=== PATIENT | female | born 1985 | race Caucasian/White ===

== ENCOUNTER 2019-11-05 07:41 | Day surgery (SDC) | payer OTHER ==
[2019-11-05] MEDS ORDERED: Marcaine 0.5% SDV 10 ML IJ ONE (07:42)
[2019-11-05] MEDS ORDERED: Depo-Medrol 40 MG/ML IM ONE (07:42)
[2019-11-05] MEDS ORDERED: Ketamine HCl 50 MG/ML ONE (09:36)
[2019-11-05] MEDS ORDERED: DIPRIVAN 200 MG/20 ML IV ONE (09:36)
--- NOTE | 2019-11-05 11:12 | XRAY ---
Indication: Left SI joint injection. Intraoperative fluoroscopy was provided for 7 seconds. 2 digital spot images submitted for interpretation demonstrates posterior needle tip over the inferior left SI joint. Correlate with intraoperative findings/report.
--- NOTE | 2019-11-05 11:41 | XRAY ---
7 seconds fluoroscopy time in surgery for left SI joint injection.
[2019-11-05] MEDS ORDERED: Lactated Ringers 1,000 ML IV ONE (15:47)
== END 2019-11-05 09:56 | disposition home or self-care (01) ==
LOC: SDC-PAIN 07:41
PROVIDERS: ATTEND Psychiatry & Neurology Pain Medicine
DX: M46.1 Sacroiliitis, not elsewhere classified (principal); E11.9 Type 2 diabetes mellitus without complications; J44.9 Chronic obstructive pulmonary disease, unspecified; K21.9 Gastro-esophageal reflux disease without esophagitis; I25.10 Atherosclerotic heart disease of native coronary artery without angina pectoris; F41.8 Other specified anxiety disorders; F31.9 Bipolar disorder, unspecified; Z79.899 Other long term (current) drug therapy
CPT/HCPCS: 72020; 77002; 82962; G0260; 27096; J1030; J2704

== ENCOUNTER 2020-03-03 07:33 | Day surgery (SDC) | payer OTHER ==
[2020-03-03] MEDS ORDERED: Depo-Medrol 40 MG/ML IM ONE (07:34)
[2020-03-03] MEDS ORDERED: BUPIVACAINE 0.5% VIAL IJ ONE (07:34)
[2020-03-03] MEDS ORDERED: Transderm Scop 1.5MG Patch ONE (09:30)
[2020-03-03] MEDS ORDERED: DIPRIVAN 200 MG/20 ML IV ONE (09:32)
[2020-03-03] MEDS ORDERED: Ketamine HCl 50 MG/ML ONE (09:33)
--- NOTE | 2020-03-03 11:07 | XRAY ---
Indication: Right SI joint injection. Intraoperative fluoroscopy was provided for 8 seconds. 2 digital spot images submitted for interpretation demonstrates posterior needle tip projecting over the inferior right SI joint. Correlate with intraoperative findings/report.
--- NOTE | 2020-03-03 11:12 | XRAY ---
8 seconds fluoroscopy time in surgery for right SI joint injection.
[2020-03-03] MEDS ORDERED: Lactated Ringers 1,000 ML IV ONE (15:13)
== END 2020-03-03 09:55 | disposition home or self-care (01) ==
LOC: SDC-PAIN 07:33
PROVIDERS: ATTEND Psychiatry & Neurology Pain Medicine
DX: M46.1 Sacroiliitis, not elsewhere classified (principal); E11.9 Type 2 diabetes mellitus without complications; J44.9 Chronic obstructive pulmonary disease, unspecified; F41.9 Anxiety disorder, unspecified; Z79.899 Other long term (current) drug therapy
CPT/HCPCS: 27096; 72020; 77002; 82947; 82962; J1030; J2704; A9270-GY; G0260

== ENCOUNTER 2020-10-13 06:58 | Day surgery (SDC) | payer OTHER ==
[2020-10-13] MEDS ORDERED: Depo-Medrol 40 MG/ML IM ONE (06:59)
[2020-10-13] MEDS ORDERED: Sodium Chloride 0.9(Preservative Free) 10 ML IJ ONE (06:59)
[2020-10-13] MEDS ORDERED: DIPRIVAN 200 MG/20 ML IV ONE (08:37)
[2020-10-13] MEDS ORDERED: Dextrose 5%-Lr IV Solution 1000 ML 1,000 ML IV ONE ×2 (09:00→16:25)
--- NOTE | 2020-10-13 09:40 | XRAY ---
Indication: L3-L5 transforaminal JEANNETTE. Intraoperative fluoroscopy was provided for 45 seconds. 4 digital spot images submitted for interpretation demonstrate posterior needle tips projected over the expected right L4 and L5 nerve roots. A small amount of contrast has been injected for needle tip placement. Correlate with intraoperative report/findings. There is incidental note of bilateral posterior L4-S1 orthopedic fusion hardware with spacer devices. In addition, a metallic generator with paired epidural stimulator leads is seen.
--- NOTE | 2020-10-14 11:33 | XRAY ---
45 seconds fluoroscopy time in surgery for L3-L5 transforaminal JEANNETTE.
== END 2020-10-13 09:07 | disposition home or self-care (01) ==
LOC: SDC-PAIN 06:58
PROVIDERS: ATTEND Psychiatry & Neurology Pain Medicine
DX: M54.16 Radiculopathy, lumbar region (principal); F41.9 Anxiety disorder, unspecified; I25.10 Atherosclerotic heart disease of native coronary artery without angina pectoris; J44.9 Chronic obstructive pulmonary disease, unspecified; K21.9 Gastro-esophageal reflux disease without esophagitis; E11.9 Type 2 diabetes mellitus without complications; Z79.899 Other long term (current) drug therapy
CPT/HCPCS: 64483; 64484; 72100; 77003; 82947; J1030; J2704; Q9966

== ENCOUNTER 2020-12-01 06:30 | Day surgery (SDC) | payer OTHER ==
[2020-12-01] MEDS ORDERED: Xylocaine 1% Vial 30 ML PF IJ ONE (06:31)
[2020-12-01] MEDS ORDERED: LIDOCAINE HCL 2% 100 MG/5 ML IJ ONE (06:31)
[2020-12-01] MEDS ORDERED: DIPRIVAN 200 MG/20 ML IV ONE (08:48)
--- NOTE | 2020-12-01 10:18 | XRAY ---
Indication: Bilateral L3-L5 MBB. Intraoperative fluoroscopy provided for 23 seconds. Single digital spot image submitted for interpretation demonstrates posterior needle tips projecting over the expected left and right L3-L5 nerve roots. Correlate with intraoperative findings/report. Incidental incompletely visualized bilateral L4-S1 posterior fusion spinal hardware.
--- NOTE | 2020-12-01 12:43 | XRAY ---
23 seconds of fluoroscopy was used in surgery for a bilateral L3-L5 MBB.
[2020-12-01] MEDS ORDERED: Lactated Ringers 1,000 ML IV ONE (16:33)
== END 2020-12-01 09:21 | disposition home or self-care (01) ==
LOC: SDC-PAIN 06:30
PROVIDERS: ATTEND Psychiatry & Neurology Pain Medicine
DX: M79.18 Myalgia, other site (principal); E11.9 Type 2 diabetes mellitus without complications; Z79.899 Other long term (current) drug therapy
CPT/HCPCS: 72020; 77002; 82947; J2001; J2704

== ENCOUNTER 2021-01-05 06:55 | Day surgery (SDC) | payer OTHER ==
[2021-01-05] MEDS ORDERED: BUPIVACAINE 0.5% VIAL IJ ONE (06:56)
[2021-01-05] MEDS ORDERED: DIPRIVAN 200 MG/20 ML IV ONE (08:36)
[2021-01-05] MEDS ORDERED: Lactated Ringers 1,000 ML IV ONE (09:00)
--- NOTE | 2021-01-05 12:03 | XRAY ---
Indication: Bilateral L4-S1 MBB. Intraoperative fluoroscopy provided for 54 seconds. 4 digital spot images submitted for interpretation demonstrate posterior needle tips projecting over the expected left and right L4-S1 nerve roots. Correlate with intraoperative findings/report. Incidental incompletely visualized bilateral L4-S1 fusion spinal hardware and epidural leads/tubing.
--- NOTE | 2021-01-05 12:40 | XRAY ---
54 seconds fluoroscopy time in surgery for bilateral L4-S1 MBB.
== END 2021-01-05 09:05 | disposition home or self-care (01) ==
LOC: SDC-PAIN 06:55
PROVIDERS: ATTEND Psychiatry & Neurology Pain Medicine
DX: M47.816 Spondylosis without myelopathy or radiculopathy, lumbar region (principal); E11.9 Type 2 diabetes mellitus without complications; Z79.899 Other long term (current) drug therapy
CPT/HCPCS: 64493; 64494; 72020; 77002; 82947; J2704

== ENCOUNTER 2021-02-02 07:38 | Day surgery (SDC) | payer OTHER ==
[2021-02-02] MEDS ORDERED: Xylocaine 1% Vial 30 ML PF IJ ONE (07:39)
[2021-02-02] MEDS ORDERED: D50W 50ML Vial IV ONE (07:39)
[2021-02-02] MEDS ORDERED: BUPIVACAINE 0.5% VIAL IJ ONE (07:39)
[2021-02-02] MEDS ORDERED: Depo-Medrol 40 MG/ML IM ONE (07:39)
[2021-02-02] MEDS ORDERED: DIPRIVAN 200 MG/20 ML IV ONE (09:16)
--- NOTE | 2021-02-02 11:22 | XRAY ---
Indication: Right L4-S1 RFA. Intraoperative fluoroscopy provided for 36 seconds. 3 digital spot image submitted for interpretation demonstrates posterior needle tips projecting over the expected right L4 and L5 nerve roots. Correlate with intraoperative findings/report. Incidental bilateral posterior L4-S1 spinal fusion hardware/intervertebral spacers and incompletely visualized lower back epidural stimulator device/leads.
--- NOTE | 2021-02-02 11:23 | XRAY ---
36 seconds fluoroscopy time in surgery for right L4-S1 RFA.
[2021-02-02] MEDS ORDERED: Lactated Ringers 1,000 ML IV ONE (15:02)
== END 2021-02-02 09:49 | disposition home or self-care (01) ==
LOC: SDC-PAIN 07:38
PROVIDERS: ATTEND Psychiatry & Neurology Pain Medicine
DX: M47.816 Spondylosis without myelopathy or radiculopathy, lumbar region (principal); E11.9 Type 2 diabetes mellitus without complications; Z79.899 Other long term (current) drug therapy
CPT/HCPCS: 64635; 64636; 72100; 77002; 82947; J1030; J2001; J2704

== ENCOUNTER 2021-02-09 06:49 | Day surgery (SDC) | payer OTHER ==
[2021-02-09] MEDS ORDERED: BUPIVACAINE 0.5% VIAL IJ ONE (06:50)
[2021-02-09] MEDS ORDERED: Depo-Medrol 40 MG/ML IM ONE (06:50)
[2021-02-09] MEDS ORDERED: Xylocaine 1% Vial 30 ML PF IJ ONE (06:50)
[2021-02-09] MEDS ORDERED: DIPRIVAN 200 MG/20 ML IV ONE (07:58)
[2021-02-09] MEDS ORDERED: Phenergan 25 MG INJ ONE (08:29)
--- NOTE | 2021-02-09 10:22 | XRAY ---
Indication: Left L4-S1 RFA. Intraoperative fluoroscopy provided for 44 seconds. 3 digital spot image submitted for interpretation demonstrates posterior needle tips projecting over the expected left L4-S1 nerve roots. Correlate with intraoperative findings/report. Incidental bilateral L4-S1 spinal fusion hardware/intervertebral spacers and epidural stimulator device.
--- NOTE | 2021-02-09 12:20 | XRAY ---
44 seconds of fluoroscopy was used in surgery for a left L4-S1 RFA.
[2021-02-09] MEDS ORDERED: Lactated Ringers 1,000 ML IV ONE (16:24)
== END 2021-02-09 08:43 | disposition home or self-care (01) ==
LOC: SDC-PAIN 06:49
PROVIDERS: ATTEND Psychiatry & Neurology Pain Medicine
DX: M47.816 Spondylosis without myelopathy or radiculopathy, lumbar region (principal); E11.9 Type 2 diabetes mellitus without complications; Z79.899 Other long term (current) drug therapy
CPT/HCPCS: 64635; 64636; 72100; 77002; 82947; J1030; J2001; J2550; J2704

== ENCOUNTER 2021-05-11 07:04 | Day surgery (SDC) | payer OTHER ==
[2021-05-11] MEDS ORDERED: LIDOCAINE HCL 2% 100 MG/5 ML IJ ONE (07:05)
[2021-05-11] MEDS ORDERED: Lactated Ringers 1,000 ML IV ONE (08:41)
[2021-05-11] MEDS ORDERED: DIPRIVAN 200 MG/20 ML IV ONE (09:38)
--- NOTE | 2021-05-11 11:41 | XRAY ---
Indication: Right C2-C5 MBB. Intraoperative fluoroscopy provided for 19 seconds. 2 digital spot image submitted for interpretation demonstrates posterior needle tips projecting over the expected right C2-C5 nerve roots. Correlate with intraoperative findings/report.
--- NOTE | 2021-05-11 11:43 | XRAY ---
19 seconds of fluoroscopy was used in surgery for a right C2-C5 MBB.
== END 2021-05-11 10:02 | disposition home or self-care (01) ==
LOC: SDC-PAIN 07:04
PROVIDERS: ATTEND Psychiatry & Neurology Pain Medicine
DX: M47.812 Spondylosis without myelopathy or radiculopathy, cervical region (principal); E11.9 Type 2 diabetes mellitus without complications; Z79.899 Other long term (current) drug therapy
CPT/HCPCS: 64490; 64491; 64492; 72040; 77002; 82947; J2704

== ENCOUNTER 2021-06-08 06:53 | Day surgery (SDC) | payer OTHER ==
[2021-06-08] MEDS ORDERED: BUPIVACAINE 0.5% VIAL IJ ONE (06:54)
[2021-06-08] MEDS ORDERED: Decadron 4 MG INJ IV ONE (06:54)
[2021-06-08] MEDS ORDERED: DIPRIVAN 200 MG/20 ML IV ONE (08:47)
[2021-06-08] MEDS ORDERED: Lactated Ringers 1,000 ML IV ONE (09:18)
--- NOTE | 2021-06-08 10:48 | XRAY ---
Indication: Right C2-C5 MBB. Intraoperative fluoroscopy provided for 25 seconds. 3 digital spot image submitted for interpretation demonstrates posterior needle tips projecting over the expected right C2-C5 nerve roots. Correlate with intraoperative findings/report.
--- NOTE | 2021-06-08 11:11 | XRAY ---
25 seconds fluoroscopy time in surgery for right C2-C5 MBB.
== END 2021-06-08 09:20 | disposition home or self-care (01) ==
LOC: SDC-PAIN 06:53
PROVIDERS: ATTEND Psychiatry & Neurology Pain Medicine
DX: M47.812 Spondylosis without myelopathy or radiculopathy, cervical region (principal); E11.9 Type 2 diabetes mellitus without complications; Z79.899 Other long term (current) drug therapy
CPT/HCPCS: 64490; 64491; 64492; 72050; 77002; 82947; J1100; J2704

== ENCOUNTER 2021-07-13 06:36 | Day surgery (SDC) | payer OTHER ==
[2021-07-13] MEDS ORDERED: Decadron 4 MG INJ IV ONE (06:37)
[2021-07-13] MEDS ORDERED: BUPIVACAINE 0.5% VIAL IJ ONE (06:37)
[2021-07-13] MEDS ORDERED: Xylocaine 1% Vial 30 ML PF IJ ONE (06:37)
[2021-07-13] MEDS ORDERED: DIPRIVAN 200 MG/20 ML IV ONE ×2 (08:04→08:22)
[2021-07-13] MEDS ORDERED: Lactated Ringers 1,000 ML IV ONE (09:44)
--- NOTE | 2021-07-13 10:30 | XRAY ---
35 seconds of fluoroscopy was used in surgery for a right C2-C5 RFA.
--- NOTE | 2021-07-13 10:31 | XRAY ---
Indication: Right C2-C5 RFA. Intraoperative fluoroscopy provided for 35 seconds. 2 digital spot image submitted for interpretation demonstrates posterior needle tips projecting over the expected right C2-C5 nerve roots. Correlate with intraoperative findings/report.
== END 2021-07-13 08:48 | disposition home or self-care (01) ==
LOC: SDC-PAIN 06:36
PROVIDERS: ATTEND Psychiatry & Neurology Pain Medicine
DX: M47.812 Spondylosis without myelopathy or radiculopathy, cervical region (principal); E11.9 Type 2 diabetes mellitus without complications; Z79.899 Other long term (current) drug therapy
CPT/HCPCS: 01939; 64633; 64634; 72040; 77002; 82947; J1100; J2001; J2704

== ENCOUNTER 2021-11-23 07:38 | Day surgery (SDC) | payer OTHER ==
[2021-11-23] MEDS ORDERED: Depo-Medrol 40 MG/ML IM ONE (07:39)
[2021-11-23] MEDS ORDERED: Marcaine Mpf 0.5% Vial 30 Ml IJ ONE (07:39)
[2021-11-23] MEDS ORDERED: DIPRIVAN 200 MG/20 ML IV ONE (09:16)
--- NOTE | 2021-11-23 11:37 | XRAY ---
Indication: Left SI joint injection. Intraoperative fluoroscopy provided for 9 seconds. 2 digital spot image submitted for interpretation demonstrates posterior needle tip projecting over the inferior left SI joint. Correlate with intraoperative findings/report. Incidental partially visualized lower lumbar fusion hardware and epidural stimulator device.
--- NOTE | 2021-11-23 11:58 | XRAY ---
9 seconds fluoroscopy time in surgery for injection of the left SI joint.
[2021-11-23] MEDS ORDERED: Lactated Ringers 1,000 ML IV ONE (12:24)
== END 2021-11-23 09:41 | disposition home or self-care (01) ==
LOC: SDC-PAIN 07:38
PROVIDERS: ATTEND Psychiatry & Neurology Pain Medicine
DX: M46.1 Sacroiliitis, not elsewhere classified (principal); Z79.899 Other long term (current) drug therapy
CPT/HCPCS: 27096; 72170; 77002; 82947; G0260; J1030; J2704

== ENCOUNTER 2022-04-26 06:51 | Day surgery (SDC) | payer OTHER ==
[2022-04-26] MEDS ORDERED: LIDOCAINE HCL 2% 100 MG/5 ML IJ ONE (06:52)
[2022-04-26] MEDS ORDERED: DIPRIVAN 200 MG/20 ML IV ONE (08:27)
[2022-04-26] MEDS ORDERED: Phenergan 25 MG INJ*** 12.5 MG in Sodium Chloride 0.9% 100 ML IV SCH (08:30)
[2022-04-26] MEDS ORDERED: TORAdol 30 mg Injection ONE (08:31)
[2022-04-26] MEDS ORDERED: BENADRYL 50 MG/ML ONE (08:31)
--- NOTE | 2022-04-26 09:53 | XRAY ---
Indication: Left C2-C5 MBB. Intraoperative fluoroscopy provided for 26 seconds. 3 digital spot image submitted for interpretation demonstrates posterior needle tips projecting over the expected left C2-C5 nerve roots. Correlate with intraoperative findings/report.
[2022-04-26] MEDS ORDERED: Lactated Ringers 1,000 ML IV ONE (10:11)
--- NOTE | 2022-04-26 10:49 | XRAY ---
26 seconds of fluoroscopy was used in surgery for a left C2-C5 MBB.
== END 2022-04-26 09:05 | disposition home or self-care (01) ==
LOC: SDC-PAIN 06:51
PROVIDERS: ATTEND Psychiatry & Neurology Pain Medicine
DX: M47.812 Spondylosis without myelopathy or radiculopathy, cervical region (principal); E11.9 Type 2 diabetes mellitus without complications; Z79.899 Other long term (current) drug therapy
CPT/HCPCS: 64490; 64491; 64492; 72040; 77002; 82947; J1200; J1885; J2550; J2704

== ENCOUNTER 2022-05-24 06:51 | Day surgery (SDC) | payer OTHER ==
[2022-05-24] MEDS ORDERED: BUPIVACAINE 0.5% VIAL IJ ONE (06:52)
[2022-05-24] MEDS ORDERED: DIPRIVAN 200 MG/20 ML IV ONE (08:33)
[2022-05-24] MEDS ORDERED: MORPHINE SULFATE 2 MG INJ ONE ×2 (08:52→09:01)
--- NOTE | 2022-05-24 10:04 | XRAY ---
Indication: Left C2-C5 MBB. Intraoperative fluoroscopy provided for 26 seconds. 2 digital spot image submitted for interpretation demonstrates posterior needle tips projecting over the expected left C2-C5 nerve roots. Correlate with intraoperative findings/report.
--- NOTE | 2022-05-24 10:07 | XRAY ---
26 seconds of fluoroscopy was used in surgery for a left C2-C5 MBB.
[2022-05-24] MEDS ORDERED: Lactated Ringers 1,000 ML IV ONE (13:57)
== END 2022-05-24 09:04 | disposition home or self-care (01) ==
LOC: SDC-PAIN 06:51
PROVIDERS: ATTEND Psychiatry & Neurology Pain Medicine
DX: M47.812 Spondylosis without myelopathy or radiculopathy, cervical region (principal); E11.9 Type 2 diabetes mellitus without complications; Z79.899 Other long term (current) drug therapy
CPT/HCPCS: 64493; 64494; 72040; 77002; 82947; J2270; J2704

== ENCOUNTER 2022-06-21 06:36 | Day surgery (SDC) | payer OTHER ==
[2022-06-21] MEDS ORDERED: LIDOCAINE HCL 1% 50 MG/5 ML VL PF IJ ONE (06:37)
[2022-06-21] MEDS ORDERED: BUPIVACAINE 0.5% VIAL IJ ONE (06:37)
[2022-06-21] MEDS ORDERED: Decadron 4 MG INJ IV ONE (06:37)
[2022-06-21] MEDS ORDERED: D50W 50ML Vial IV SCH (07:30)
[2022-06-21] MEDS ORDERED: Xylocaine-Mpf 2% 5 Ml Vial ONE (08:00)
[2022-06-21] MEDS ORDERED: DIPRIVAN 200 MG/20 ML IV ONE (08:00)
[2022-06-21] MEDS ORDERED: Zofran 4 MG/2 ML VIAL ONE (08:09)
--- NOTE | 2022-06-21 10:26 | XRAY ---
Indication: Left C2-C5 RFA. Intraoperative fluoroscopy provided for 20 seconds. 3 digital spot image submitted for interpretation demonstrates posterior needle tips projecting over the expected left C2-C5 nerve roots. Correlate with intraoperative findings/report.
--- NOTE | 2022-06-21 11:15 | XRAY ---
20 seconds of fluoroscopy was used in surgery for a leftC2-C5 RFA.
[2022-06-21] MEDS ORDERED: Lactated Ringers 1,000 ML IV ONE (14:13)
== END 2022-06-21 08:50 | disposition home or self-care (01) ==
LOC: SDC-PAIN 06:36
PROVIDERS: ATTEND Psychiatry & Neurology Pain Medicine
DX: M47.812 Spondylosis without myelopathy or radiculopathy, cervical region (principal); E11.9 Type 2 diabetes mellitus without complications; Z79.899 Other long term (current) drug therapy
CPT/HCPCS: 64633; 64634; 72040; 77002; 82947; J1100; J2001; J2405; J2704

== ENCOUNTER 2023-06-20 08:57 | Day surgery (SDC) | payer OTHER ==
[2023-06-20] MEDS ORDERED: Decadron 4 MG INJ IV ONE (08:58)
[2023-06-20] MEDS ORDERED: Sodium Chloride 0.9(Preservative Free) 10 ML IJ ONE (08:58)
[2023-06-20] MEDS ORDERED: DIPRIVAN 200 MG/20 ML IV ONE (11:18)
[2023-06-20] MEDS ORDERED: MORPHINE SULFATE 2 MG INJ ONE (11:36)
[2023-06-20] MEDS ORDERED: Lactated Ringers 1,000 ML IV ONE (11:52)
--- NOTE | 2023-06-20 13:08 | XRAY ---
Indication: Left L4-S1 Transforaminal JEANNETTE. Intraoperative fluoroscopy provided for 42 seconds. 4 digital spot images submitted for interpretation demonstrates posterior needle tips projecting over expected left L4 and L5 nerve roots. Small amount of contrast injected for needle tip placement. Correlate with intraoperative findings/report. Incidental bilateral L4-S1 spinal fusion hardware/individual spacers.
--- NOTE | 2023-06-20 13:50 | XRAY ---
42 seconds of fluoroscopy was used in surgery for a left L4-S1 transforaminal JEANNETTE.
== END 2023-06-20 12:07 | disposition home or self-care (01) ==
LOC: SDC-PAIN 08:57
PROVIDERS: ATTEND Psychiatry & Neurology Pain Medicine
DX: M54.16 Radiculopathy, lumbar region (principal); E11.9 Type 2 diabetes mellitus without complications; Z79.899 Other long term (current) drug therapy
CPT/HCPCS: 64483; 64484; 72100; 77003; 82947; J1100; J2270; J2704; Q9966

== ENCOUNTER 2023-08-01 08:38 | Day surgery (SDC) | payer OTHER ==
[2023-08-01] MEDS ORDERED: Depo-Medrol 40 MG/ML IM ONE (08:39)
[2023-08-01] MEDS ORDERED: BUPIVACAINE 0.5% VIAL IJ ONE (08:39)
[2023-08-01] MEDS ORDERED: LIDOCAINE HCL 1% 50 MG/5 ML VL PF IJ ONE (08:39)
[2023-08-01] MEDS ORDERED: D50W 50 ml Abboject IV ONE (10:00)
[2023-08-01] MEDS ORDERED: DIPRIVAN 200 MG/20 ML IV ONE (10:49)
[2023-08-01] MEDS ORDERED: Lactated Ringers 1,000 ML IV ONE (11:12)
--- NOTE | 2023-08-01 11:50 | XRAY ---
Indication: Right L4-S1 RFA. Intraoperative fluoroscopy provided for 38 seconds. 5 digital spot images submitted for interpretation demonstrates posterior needle tips projecting over expected right L4-S1 nerve roots. Correlate with intraoperative findings/report. Incidental bilateral L4-S1 fusion hardware/intervertebral spacers.
--- NOTE | 2023-08-01 12:20 | XRAY ---
38 seconds of fluoroscopy was used in surgery for a right L4-S1 RFA.
== END 2023-08-01 11:50 | disposition home or self-care (01) ==
LOC: SDC-PAIN 08:38
PROVIDERS: ATTEND Psychiatry & Neurology Pain Medicine
DX: M47.816 Spondylosis without myelopathy or radiculopathy, lumbar region (principal); E11.9 Type 2 diabetes mellitus without complications
CPT/HCPCS: 64635; 64636; 72100; 77002; 82947; J1010; J2001; J2704; J1030

== ENCOUNTER 2023-08-02 09:05 | Day surgery (SDC) | payer OTHER ==
[2023-08-02] MEDS ORDERED: BUPIVACAINE 0.5% VIAL IJ ONE (09:06)
[2023-08-02] MEDS ORDERED: Depo-Medrol 40 MG/ML IM ONE (09:06)
[2023-08-02] MEDS ORDERED: LIDOCAINE HCL 1% 50 MG/5 ML VL PF IJ ONE (09:06)
[2023-08-02] MEDS ORDERED: DIPRIVAN 200 MG/20 ML IV ONE (11:01)
[2023-08-02] MEDS ORDERED: Versed 2 MG/2 ML Injection ONE (11:02)
[2023-08-02] MEDS ORDERED: Xylocaine-Mpf 2% 5 Ml Vial ONE (11:05)
[2023-08-02] MEDS ORDERED: Lactated Ringers 1,000 ML IV ONE (11:25)
--- NOTE | 2023-08-02 12:39 | XRAY ---
Indication: Left L4-S1 RFA. Intraoperative fluoroscopy provided for 43 seconds. 3 digital spot image submitted for interpretation demonstrates posterior needle tips projecting over the expected left L4-S1 nerve roots. Correlate with intraoperative findings/report. Incidental bilateral L4-S1 fusion hardware.
--- NOTE | 2023-08-02 12:54 | XRAY ---
43 seconds of fluoroscopy was used in surgery for a left L4-S1 RFA.
== END 2023-08-02 11:37 | disposition home or self-care (01) ==
LOC: SDC-PAIN 09:05
PROVIDERS: ATTEND Psychiatry & Neurology Pain Medicine
DX: M47.816 Spondylosis without myelopathy or radiculopathy, lumbar region (principal); E11.9 Type 2 diabetes mellitus without complications
CPT/HCPCS: 64635; 64636; 72100; 77002; 82947; J1010; J2001; J2250; J2704; J1030

== ENCOUNTER 2023-12-19 08:08 | Day surgery (SDC) | payer OTHER ==
[2023-12-19] MEDS ORDERED: Sodium Chloride 0.9(Preservative Free) 10 ML IJ ONE (08:09)
[2023-12-19] MEDS ORDERED: LIDOCAINE HCL 1% 50 MG/5 ML VL PF IJ ONE (08:09)
[2023-12-19] MEDS ORDERED: Decadron 4 MG INJ IV ONE (08:09)
[2023-12-19] MEDS ORDERED: Lactated Ringers 1,000 ML IV ONE (09:31)
[2023-12-19] MEDS ORDERED: DIPRIVAN 200 MG/20 ML IV ONE (09:46)
[2023-12-19] MEDS ORDERED: MORPHINE SULFATE 2 MG INJ ONE ×2 (10:15→10:42)
--- NOTE | 2023-12-19 10:26 | XRAY ---
Indication: Right piriformis injection. Intraoperative fluoroscopy was provided for 20 seconds. Single digital spot image submitted for interpretation demonstrates posterior needle tip projecting over right piriformis. Small amount of contrast injected for needle tip placement. Correlate with intraoperative findings/report.
--- NOTE | 2023-12-19 10:26 | XRAY ---
Indication: Right L4-S1 transforaminal JEANNETTE. Intraoperative fluoroscopy was provided for 55 seconds. 9 digital spot images submitted for interpretation demonstrates posterior needle tips projecting over expected right L4 and L5 nerve roots. Small amount of contrast injected for needle tip placement. Correlate with intraoperative findings/report. Incidental bilateral L4-S1 fusion hardware.
--- NOTE | 2023-12-19 12:27 | XRAY ---
55 seconds of fluoroscopy was used in surgery for a right L4-S1 transforaminal JEANNETTE.
--- NOTE | 2023-12-19 12:27 | XRAY ---
20 seconds of fluoroscopy was used in surgery for a right piriformis injection.
== END 2023-12-19 11:06 | disposition home or self-care (01) ==
LOC: SDC-PAIN 08:08
PROVIDERS: ATTEND Psychiatry & Neurology Pain Medicine
DX: M54.16 Radiculopathy, lumbar region (principal); E11.9 Type 2 diabetes mellitus without complications; M79.18 Myalgia, other site
CPT/HCPCS: 20552; 64483; 64484; 72100; 72170; 77002; 77003; 82947; J1100; J2001; J2270; J2704; Q9966